=== PATIENT | female | born 1945 | race Caucasian/White ===

== ENCOUNTER 2024-01-07 15:32 | Inpatient (IN) | payer BC, OTHER ==
[2024-01-07] MEDS ORDERED: ALBUTEROL SO4 2.5/IPRATROPIUM 0.5 INH SOL 3 ML VIAL.NEB. NEB ONE (16:50)
[2024-01-07 17:57] LABS: VENOUS BASE EXCESS 0.4 mmol/L (-2-2); VENOUS O2 SATURATION 41.7 % (70-80); VENOUS PH 7.247 (7.310-7.410)
[2024-01-07 17:59] LABS: BASO % 0.3 % (0-2.0); EOS % 0.4 % (0-4.5); HEMOGLOBIN 14.2 GM/dL (10.7-15.3); LYMPH % 15.2 % (8-40); MCH 34.4 pg (25.7-33.7); MCHC 33.7 g/dl (32.0-36.0); MEAN CELL VOLUME 102.1 fl (80-96); MEAN PLT VOLUME 6.9 fl (7.5-11.1); MONO % 4.9 % (3.8-10.2); NEUT % 79.2 % (42.8-82.8); PLATELET COUNT 214 10^3/uL (134-434); RBC 4.12 M/mm3 (3.60-5.2); RDW 14.3 % (11.6-15.6); WHITE BLOOD COUNT 6.5 K/mm3 (4.0-10.0)
[2024-01-07 18:08] LABS: VENOUS PCO2 70.3 mmHg (38-52)
[2024-01-07] MEDS ORDERED: predniSONE 20 MG TABLET (UD) ONE (18:10)
[2024-01-07] MEDS ORDERED: ALBUTEROL SO4 HFA INHALER IH ONE (18:10)
[2024-01-07 18:15] LABS: POTASSIUM 4.2 mmol/L (3.5-5.1)
[2024-01-07 18:17] LABS: CALCIUM 9.1 mg/dL (8.5-10.1)
[2024-01-07 18:18] LABS: BLOOD UREA NITROGEN 14.2 mg/dL (7-18)
[2024-01-07] MEDS: ALBUTEROL SO4 HFA INHALER IH ONE (18:18)
[2024-01-07] MEDS: predniSONE 20 MG TABLET (UD) PO ONE (18:18)
[2024-01-07 18:21] LABS: CREATININE 0.5 mg/dL (0.55-1.3)
[2024-01-07 18:23] LABS: BILIRUBIN,TOTAL 0.2 mg/dL (0.2-1)
[2024-01-07] MEDS ORDERED: ALBUTEROL SO4 2.5/IPRATROPIUM 0.5 INH SOL 3 ML VIAL.NEB. NEB PRN (22:02)
[2024-01-07 22:32] LABS: LACTIC ACID 3.5 mmol/L (0.4-2.0)
[2024-01-07] MEDS: DEXTROSE 5%-0.45% SALINE 1,000 ML IV SCH (22:43)
[2024-01-08] MEDS: SODIUM CHLORIDE 1,000 ML IV STA (01:40)
[2024-01-08 08:05] VITALS: BMI 24.5
[2024-01-08] MEDS ORDERED: LOSARTAN POTASSIUM 50 MG TABLET PO SCH (10:00)
[2024-01-08] MEDS: methylPREDNISolone NA SUCC 40 MG/1 ML VIAL IVPUSH SCH (10:16)
[2024-01-08] MEDS: LOSARTAN POTASSIUM 50 MG TABLET PO SCH (10:16)
[2024-01-08 11:28] LABS: BASO % 0.3 % (0-2.0); EOS % 0.2 % (0-4.5); HEMATOCRIT 39.8 % (32.4-45.2); HEMOGLOBIN 13.3 GM/dL (10.7-15.3); LYMPH % 36.8 % (8-40); MCHC 33.3 g/dl (32.0-36.0); MONO % 10.6 % (3.8-10.2); NEUT % 52.1 % (42.8-82.8); PLATELET COUNT 208 10^3/uL (134-434); RDW 14.2 % (11.6-15.6); WHITE BLOOD COUNT 6.1 K/mm3 (4.0-10.0)
[2024-01-08 11:48] LABS: POTASSIUM 3.4 mmol/L (3.5-5.1)
[2024-01-08 11:53] LABS: BLOOD UREA NITROGEN 13.2 mg/dL (7-18); CALCIUM 9.5 mg/dL (8.5-10.1)
[2024-01-08 11:56] LABS: CREATININE 0.7 mg/dL (0.55-1.3)
[2024-01-08 12:03] LABS: LACTIC ACID 2.9 mmol/L (0.4-2.0)
[2024-01-08] MEDS: FLUTICASONE/UMECLIDIN/VILANTER(200-62.5-25 TRELEGY ELLIPTA) INAHLER IH SCH (17:01)
[2024-01-10 14:18] VITALS: BP 133/60; PULSE 82; RESP 17; TEMP 98.5
== END 2024-01-10 15:19 | disposition home or self-care (01) | DRG 918 ==
LOC: JER 15:32 → JERBED 19:29 → J4W 01-08 06:45 → OBSVTOIN 01-08 10:08
PROVIDERS: ADMIT Internal Medicine; ATTEND Family Medicine
DX: T59.811A Toxic effect of smoke, accidental (unintentional), initial encounter (principal); J44.9 Chronic obstructive pulmonary disease, unspecified; I10 Essential (primary) hypertension; X00.1XXA Exposure to smoke in uncontrolled fire in building or structure, initial encounter; Y93.89 Activity, other specified; Y92.000 Kitchen of unspecified non-institutional (private) residence as the place of occurrence of the external cause; Y99.8 Other external cause status
CPT/HCPCS: 0241U-QW; 36415; 71046-TC-FY; 80048; 80053; 82375; 82803; 83605; 84484; 85025; 93005; 93010; 94761; 99285-25; G0378